=== PATIENT | male | born 2005 | race Hispanic/Latino ===

== ENCOUNTER 2023-02-02 14:36 | Emergency (ER) | payer MEDICAID ==
[~2023-02-02] VITALS: Ht 162.6 cm; Wt 61.2 kg
[2023-02-02 14:37] VITALS: BP 121/63; PULSE 84; RESP 16
[2023-02-02] MEDS ORDERED: IBUPROFEN 600 MG TABLET PO ONE (15:30)
[2023-02-02] MEDS ORDERED: TIZANIDINE HCL 2 MG TABLET PO SCH (15:30)
[2023-02-02] MEDS ORDERED: DIAZEPAM 5 MG TABLET PO ONE (15:30)
[2023-02-02] MEDS ORDERED: PREDNISONE 20 MG TABLET PO ONE (15:30)
[2023-02-02] MEDS ORDERED: CEPH500C2 PO (15:42)
== END 2023-02-02 17:12 | disposition home or self-care (01) ==
LOC: EDH 14:36
DX: S80.01XA Contusion of right knee, initial encounter (principal); W01.0XXA Fall on same level from slipping, tripping and stumbling without subsequent striking against object, initial encounter; Y93.89 Activity, other specified; Y92.89 Other specified places as the place of occurrence of the external cause; Y99.8 Other external cause status
CPT/HCPCS: 73562